=== PATIENT | female | born 1945 ===

== ENCOUNTER 2023-02-27 22:01 | Outpatient (REF) | payer MEDICARE, BC, SELFPAY | END 2023-02-27 22:02 | disposition home or self-care (01) | LOC: NCHCN 22:01 | PROVIDERS: Visit Provider Family Medicine | DX: R39.89 Other symptoms and signs involving the genitourinary system (principal); R82.79 Other abnormal findings on microbiological examination of urine | CPT/HCPCS: 87086 ==

== ENCOUNTER 2025-02-06 16:06 | Outpatient (REF) | payer MEDICARE, BC, SELFPAY | END 2025-02-06 16:07 | disposition home or self-care (01) | LOC: NCHCN 16:06 | PROVIDERS: Visit Provider Physician Assistant | DX: R39.9 Unspecified symptoms and signs involving the genitourinary system (principal) | CPT/HCPCS: 87077; 87086; 87186 ==

== ENCOUNTER 2025-03-27 11:44 | Outpatient (REF) | payer MEDICARE, BC, SELFPAY ==
[2025-03-27 14:54] LABS: ALT 37 U/L (14-59); AST 29 U/L (15-37); Albumin 3.6 g/dL (3.4-5.0); Alkaline Phosphatase 119 U/L (46-116); Anion Gap 6.4 mmol/L (3-11); BUN 18 mg/dL (7-18); Bilirubin, Total 0.6 mg/dL (0.2-1.0); CO2 27.6 mmol/L (21.0-32.0); Calcium 8.6 mg/dL (8.5-10.1); Calculated LDL 56 mg/dL (<100); Chloride 106 mmol/L (98-107); Cholesterol 134 mg/dL (<200); Estimated GFR 64.63 (mL/min/1.73m2); Glucose 89 mg/dL (74-106); HDL Cholesterol 67 mg/dL (>or=50); Potassium 4.3 mmol/L (3.5-5.1); Sodium 140 mmol/L (136-145); Total Protein 7.1 g/dL (6.4-8.2); Triglyceride 59 mg/dL (<150)
== END 2025-03-27 11:45 | disposition home or self-care (01) ==
LOC: NCHCN 11:44
PROVIDERS: Visit Provider Nurse Practitioner Family
DX: I25.10 Atherosclerotic heart disease of native coronary artery without angina pectoris (principal)
CPT/HCPCS: 80053; 80061